=== PATIENT | female | born 1990 | race Caucasian/White ===

== ENCOUNTER 2018-02-05 13:27 | Emergency (ER) | payer OTHER ==
[2018-02-05 13:42] VITALS: BP 106/65; PULSE 98; TEMP 98; BMI 20.5
--- NOTE | 2018-02-05 13:47 | PDOC ---
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 Complaining of moderate pain persistent constant worse with ambulation no exacerbating or alleviating factors no other injuries sustained Past History - Past Medical History Allergies/Adverse Reactions: Allergies Allergy/AdvReac Type Severity Reaction Status Date / Time No Known Allergies Allergy Unverified 02/05/18 13:28 Home Medications: Ambulatory Orders NK [No Known Home Medication] 02/05/18 COPD: No Other medical history: DENIES - Suicide/Smoking/Psychosocial Hx Smoking History: Never smoked Have you smoked in the past 12 months: No Information on smoking cessation initiated: No Hx Alcohol Use: Yes (SOCIAL) Drug/Substance Use Hx: No Substance Use Type: Alcohol *Physical Exam - Vital Signs Last Vital Signs Temp Pulse Resp BP Pulse Ox 98 F 98 H 16 106/65 100 02/05/18 13:28 02/05/18 13:28 02/05/18 13:28 02/05/18 13:28 02/05/18 13:28 - Physical Exam Comments: 02/05/18 14:33 Vitals: Triage Vital signs reviewed General Appearance: no acute distress, well nourished well developed, Head: Atraumatic, Extremities: Full range of motion to all extremities, no cyanosis, clubbing, or edemamild ttp over the fifth metatarsal, nvi distally Skin: Warm and dry, no rashes or lesions, no rash, no petechiae Neuro: Strength intact to all extremities, Sensation intact to all extremities, gait normal Psych: normal mood, normal affect Medical Decision Making - Medical Decision Making 02/05/18 14:34 Foot injury at work we'll x-ray and reassess X-ray demonstrates no fracture dislocation Findings and for follow-up and strict return instructions discussed with patient. *DC/Admit/Observation/Transfer Diagnosis at time of Disposition: Bone bruise - Discharge Dispostion Condition at time of disposition: Stable Admit: No - Referrals - Patient Instructions Additional Instructions: Wear hard soled shoe. Ice affected foot 20 minutes on 20 minutes off. Over-the- counter Motrin as instructed on package as an for pain. If still having pain for greater than 1 week follow-up with Uriel dubon, return to ED for any concerns - Post Discharge Activity
== END 2018-02-05 14:56 | disposition home or self-care (01) ==
LOC: FER 13:27
DX: T14.8XXA Other injury of unspecified body region, initial encounter (principal); W22.8XXA Striking against or struck by other objects, initial encounter; Y93.89 Activity, other specified; Y92.238 Other place in hospital as the place of occurrence of the external cause; Y99.0 Civilian activity done for income or pay
CPT/HCPCS: 73630-TC-LT; 99281-25